=== PATIENT | female | born 1990 | race Caucasian/White ===

== ENCOUNTER 2025-10-06 12:48 | Emergency (ER) | payer BC ==
[~2025-10-06] VITALS: Ht 157.5 cm; Wt 50.8 kg
[2025-10-06 12:51] VITALS: BP 117/74
[2025-10-06 13:16] LABS: *BILIRUBIN,URIN NEGATIVE (NEGATIVE); *BLOOD, URINE NEGATIVE (NEGATIVE); *CLARITY,URINE CLEAR (CLEAR); *COLOR,URINE YELLOW (YELLOW); *KETONES,URINE NEGATIVE (NEGATIVE); *PROTEIN,URINE NEGATIVE (NEGATIVE); *UROBILINOGEN,URINE 0.2 E.U./dl (NORMAL); LEUKOCYTE ESTERASE ,URINE NEGATIVE (NEGATIVE); NITRITE, URINE NEGATIVE (NEGATIVE); UGLUCOSE NEGATIVE (NEGATIVE)
[2025-10-06 13:25] LABS: PLATELET COUNT (AUTO) 305 K/uL (179-408); RED BLOOD CELL COUNT(AUTO) 4.58 MIL/uL (3.63-4.92); RED CELL DISTRIBUTION WIDTH 13.0 % (12.3-17.7); WHITE BLOOD COUNT (AUTO) 6.1 K/uL (3.8-11.8)
[2025-10-06 13:32] LABS: *URINE HCG, QUAL NEGATIVE (NEGATIVE)
[2025-10-06 13:32] LABS: CREATININE 0.5 mg/dL (0.6-1.3); SODIUM SERUM 139 mmol/L (136-145); UREA NITROGEN, BLOOD 12 mg/dL (7-18)
[2025-10-06 13:37] LABS: ASPARTATE AMINOTRANSFERASE 17 U/L (15-37); TOTAL PROTEIN, SERUM 8.2 g/dL (6.4-8.2)
[2025-10-06] MEDS ORDERED: IBUP600T51 PO (14:14)
[2025-10-06] MEDS ORDERED: CYCL5TAB4 PO (14:14)
[2025-10-06] MEDS ORDERED: LIDO700A30 TP (14:14)
[2025-10-06 14:23] VITALS: BP 117/74; TEMP 98.8; O2SAT 99
== END 2025-10-06 14:28 | disposition home or self-care (01) ==
LOC: ER 12:48
DX: S39.012A Strain of muscle, fascia and tendon of lower back, initial encounter (principal); Z88.2 Allergy status to sulfonamides; X58.XXXA Exposure to other specified factors, initial encounter; Y93.89 Activity, other specified; Y92.89 Other specified places as the place of occurrence of the external cause; Y99.9 Unspecified external cause status
CPT/HCPCS: 36415; 83690; 84703; 85025; A4606; A4663